=== PATIENT | male | born 1960 | race African-American/Black ===

== ENCOUNTER 2018-11-13 07:15 | Emergency (ER) | payer SELFPAY ==
[2018-11-14] MEDS ORDERED: Lisinopril/Hydrochlorothiazide 10 mg/12.5 mg Tablet PO SCH (09:00)
[2018-11-14] MEDS ORDERED: OLANZapine 5 MG TAB PO SCH (09:00)
[2018-11-14] MEDS ORDERED: FLUoxetine HCl 20 MG CAP PO SCH (09:00)
== END 2018-11-14 18:20 ==
LOC: ERS 07:15
DX: F23 Brief psychotic disorder (principal); K21.9 Gastro-esophageal reflux disease without esophagitis; I10 Essential (primary) hypertension; F41.9 Anxiety disorder, unspecified; F32.9 Major depressive disorder, single episode, unspecified; F17.210 Nicotine dependence, cigarettes, uncomplicated; Z79.899 Other long term (current) drug therapy
CPT/HCPCS: 99285

== ENCOUNTER 2020-06-07 10:55 | Outpatient (CLI) | payer OTHER ==
--- NOTE | 2020-06-07 12:42 | RAD ---
LUMBAR SPINE 2 VIEWS: Date: 06/07/2020 HISTORY: Disability exam. Low back pain. FINDINGS: There are degenerative changes, most prominent in the lower lumbar spine. No fracture, subluxation, o r bony destruction is seen. IMPRESSION: Lumbar spondylosis. POS: [facility]
== END 2020-06-07 10:56 | disposition home or self-care (01) ==
LOC: BICRAD 10:55
PROVIDERS: ATTEND Internal Medicine
DX: Z02.71 Encounter for disability determination (principal); M47.816 Spondylosis without myelopathy or radiculopathy, lumbar region
CPT/HCPCS: 72100

== ENCOUNTER 2023-10-22 07:22 | Outpatient (CLI) | payer OTHER | END 2023-10-22 07:23 | disposition home or self-care (01) | LOC: NM 07:22 → EDSTATUS 08:00 | PROVIDERS: ATTEND Internal Medicine | DX: K21.9 Gastro-esophageal reflux disease without esophagitis (principal); R11.10 Vomiting, unspecified; R63.4 Abnormal weight loss | CPT/HCPCS: 78264; A9541 ==